=== PATIENT | female | born 1985 | race Caucasian/White ===

== ENCOUNTER 2023-09-06 07:01 | Emergency (ER) | payer OTHER ==
[~2023-09-06] VITALS: Ht 165.1 cm; Wt 65.8 kg
[2023-09-06] MEDS ORDERED: FLUORESCEIN SODIUM 1 MG STRIP ONE (07:23)
[2023-09-06] MEDS ORDERED: TETRACAINE HCL 0.5% OPHT DROP 2 ML BOTTLE ONE (07:23)
[2023-09-06] MEDS: TETRACAINE HCL 0.5% OPHT DROP 2 ML BOTTLE OP ONE (07:29)
[2023-09-06] MEDS: FLUORESCEIN SODIUM 1 MG STRIP OP ONE (07:30)
[2023-09-06 07:47] VITALS: BP 129/72; O2SAT 100
== END 2023-09-06 07:48 | disposition home or self-care (01) ==
LOC: ER 07:35
DX: H10.89 Other conjunctivitis (principal)
CPT/HCPCS: A4606; A4663